=== PATIENT | female | born 1975 | race African-American/Black ===

== ENCOUNTER 2018-02-05 13:50 | Emergency (ER) | payer MEDICAID ==
[~2018-02-05] VITALS: Ht 175.3 cm; Wt 120.2 kg
[2018-02-05 14:22] VITALS: BP 197/120
[2018-02-05] MEDS ORDERED: HYDROcodone-ACET 7.5/325MG TAB PO ONE (15:15)
[2018-02-05] MEDS ORDERED: cloNIDine HCL 0.1 MG TAB PO ONE (15:15)
[2018-02-05] MEDS ORDERED: LIDOCAINE 1% HCL (LOCAL ANESTH.) INJ 20ML MDV ONE (15:23)
== END 2018-02-05 16:20 | disposition home or self-care (01) ==
LOC: ER 13:50
DX: S09.90XA Unspecified injury of head, initial encounter (principal); I10 Essential (primary) hypertension; W20.8XXA Other cause of strike by thrown, projected or falling object, initial encounter; Y93.89 Activity, other specified; Y99.8 Other external cause status; Y92.512 Supermarket, store or market as the place of occurrence of the external cause
CPT/HCPCS: 70450; 99284; J2001

== ENCOUNTER 2020-06-24 16:27 | Inpatient (IN) | payer MEDICAID, OTHER ==
[~2020-06-24] VITALS: Ht 175.3 cm; Wt 115.5 kg
[2020-06-24 19:05] LABS: Urine Bacteria FEW /hpf (None Seen); Urine Blood 3+ /uL (Negative); Urine Specific Gravity 1.005 (1.001-1.035); Urine WBC 50 /hpf (0 - 5)
[2020-06-24 19:22] LABS: Basophils # (auto) 0 10 ^3/uL (0-0.2); Basophils % (auto) 0.9 % (0.0-2.0); Eosinophils # (auto) 0.1 10 ^3/uL (0-0.8); Eosinophils % (auto) 2.6 % (0.0-7.0); Hematocrit 33.2 % (36.0-46.0); Lymphocytes # (auto) 1.6 10 ^3/uL (0.4-5.4); Lymphocytes % (auto) 38.1 % (10.0-50.0); Mean Corpuscular Hemoglobin 30.4 pg (28.0-32.0); Mean Corpuscular Hgb Conc. 33.1 g/dL (32.0-36.0); Mean Corpuscular Volume 91.7 fL (80.0-100.0); Monocytes # (auto) 0.3 10 ^3/uL (0-1.3); Monocytes % (auto) 7.4 % (0.0-12.0); Neutrophils # (auto) 2.2 10 ^3/uL (1.6-8.6); Platelet Count (auto) 236 10^3/uL (140-450); Red Blood Cells 3.62 10^6/uL (4.0-5.20); Red Cell Distribution Width 14.3 % (11.8-14.3); White Blood Cell 4.3 10^3/uL (4.4-10.8)
[2020-06-24 19:34] LABS: INR 1.2 (0.9-1.15); Partial Thromboplastin Time 29.2 sec (23.0-31.2)
[2020-06-24 19:37] LABS: Albumin 3.7 g/dL (3.4-5.0); Calcium 8.8 mg/dL (8.5-10.1); Potassium 3.3 mmol/L (3.5-5.1)
[2020-06-24 19:42] LABS: BUN/Creatinine Ratio 6.8; Bilirubin, Total 0.5 mg/dL (0.2-1.0); Total Protein 7.8 g/dL (6.4-8.2)
[2020-06-24] MEDS ORDERED: ENOXAPARIN SOD 100 MG/1 ML SYRINGE SC ONE (20:45)
[2020-06-24] MEDS ORDERED: cefTRIAXone 1GM/50ML D5W 50 ML IV ONE (20:45)
[2020-06-24] MEDS ORDERED: TOPI25CA5 PO (22:34)
[2020-06-24] MEDS ORDERED: CLO01T GT (22:34)
[2020-06-24] MEDS ORDERED: ASPI-543 PO (22:34)
[2020-06-24] MEDS ORDERED: LISI-646 PO (22:34)
[2020-06-24] MEDS ORDERED: ATOR10TA PO (22:34)
[2020-06-24] MEDS ORDERED: ONDANSETRON HCL 4 MG/2 ML VIAL IV PRN (22:45)
[2020-06-24] MEDS ORDERED: POTASSIUM CHL 20MEQ/100ML 100 ML IV ONE (22:45)
[2020-06-24] MEDS ORDERED: MORPHINE SULF INJ 2 MG/ML SYRINGE 1ML IV PRN (22:45)
[2020-06-24] MEDS: SODIUM CHLORIDE 0.9% 1,000 ML IV SCH (22:45)
[2020-06-24] MEDS ORDERED: NITROGLYCERIN 0.4 MG SL TAB SL PRN (22:45)
[2020-06-24] MEDS ORDERED: MORPHINE SULFATE 4 MG/ML SYR/VIAL IV PRN (22:45)
[2020-06-24] MEDS ORDERED: DOCUSATE SOD 100 MG CAP PO PRN (22:45)
--- NOTE | 2020-06-24 23:17 | NUR ---
ADMIT from ER to TELE Pt arrived alert and oriented x4. No complaints of pain, IV intact 22g Right Wrist. Oriented pt to unit. Instructed pt to use call light if need to ambulate or any needs. Side rails up, bed at lowest position.
[2020-06-24 23:20] VITALS: BP 151/94
[2020-06-25 00:32] LABS: Basophils # (auto) 0.1 10 ^3/uL (0-0.2); Basophils % (auto) 1.1 % (0.0-2.0); Eosinophils # (auto) 0.1 10 ^3/uL (0-0.8); Eosinophils % (auto) 2.4 % (0.0-7.0); Hematocrit 30.6 % (36.0-46.0); Hemoglobin 10.2 g/dL (12.2-16.2); Lymphocytes # (auto) 2.9 10 ^3/uL (0.4-5.4); Lymphocytes % (auto) 50.4 % (10.0-50.0); Mean Corpuscular Hemoglobin 30.8 pg (28.0-32.0); Mean Corpuscular Hgb Conc. 33.3 g/dL (32.0-36.0); Mean Corpuscular Volume 92.5 fL (80.0-100.0); Monocytes # (auto) 0.4 10 ^3/uL (0-1.3); Monocytes % (auto) 6.4 % (0.0-12.0); Neutrophils # (auto) 2.2 10 ^3/uL (1.6-8.6); Neutrophils % (auto) 39.7 % (37.0-80.0); Nucleated Red Blood Cells % 0.1 %; Platelet Count (auto) 219 10^3/uL (140-450); Red Blood Cells 3.31 10^6/uL (4.0-5.20); Red Cell Distribution Width 14.2 % (11.8-14.3); White Blood Cell 5.7 10^3/uL (4.4-10.8)
[2020-06-25 00:48] LABS: Albumin 3.3 g/dL (3.4-5.0); BUN/Creatinine Ratio 5.8; Potassium 3.3 mmol/L (3.5-5.1)
[2020-06-25 00:50] LABS: Bilirubin, Total 0.4 mg/dL (0.2-1.0); Total Protein 7.4 g/dL (6.4-8.2)
--- NOTE | 2020-06-25 01:52 | NUR ---
Lab Value Paged steam box hand hospitalist about pt potassium of 3.3, awaiting orders
--- NOTE | 2020-06-25 02:22 | NUR ---
New Order Notified by weight caller hospitalist new order for K rider 20meq/100ml IV once 50ml/hr. Read back and verified order.
[2020-06-25] MEDS ORDERED: POTASSIUM CHL 20MEQ/100ML 100 ML IV ONE (02:30)
[2020-06-25 05:00] VITALS: BP 153/99
--- NOTE | 2020-06-25 05:21 | NUR ---
Pt status Pt passed large blood clot from menstrual cycle . Pt vital signs 153/99 pulse 55 O2 sat 100% on room air. Pt verbalized no pain but slight abdominal pressure, stomach no sign of distention, soft and flat. No change from baseline noted.
--- NOTE | 2020-06-25 07:35 | NUR ---
Opening Shift Note: Assumed care of patient, awake and alert. No S/S of distress/SOB or pain. POM at bedside. Patient refused for medications to be taken to pharmacy, patient educated to not take any personal medications while admitted, patient verbally agreed. Bed in lowest locked position, side rails up x 2, call light within reach. Patient instructed on POC and to call for assist PRN, will continue to monitor for changes Q1hr and PRN.
[2020-06-25 09:03] VITALS: BP 179/95
[2020-06-25] MEDS: cefTRIAXone 1GM/50ML D5W 50 ML IV SCH (09:10)
[2020-06-25] MEDS: PANTOPRAZOLE 40 MG/10 ML VIAL INJ IV SCH (09:10)
[2020-06-25] MEDS: ENOXAPARIN SOD 40 MG/0.4 ML SYRINGE SC SCH (09:10)
[2020-06-25] MEDS: ASPirin 81 mg TAB PO SCH (09:11)
[2020-06-25 10:19] LABS: Basophils # (auto) 0 10 ^3/uL (0-0.2); Basophils % (auto) 0.7 % (0.0-2.0); Eosinophils # (auto) 0.2 10 ^3/uL (0-0.8); Eosinophils % (auto) 2.7 % (0.0-7.0); Hematocrit 33.1 % (36.0-46.0); Hemoglobin 10.7 g/dL (12.2-16.2); Lymphocytes # (auto) 2.2 10 ^3/uL (0.4-5.4); Lymphocytes % (auto) 35.9 % (10.0-50.0); Mean Corpuscular Hemoglobin 29.9 pg (28.0-32.0); Mean Corpuscular Hgb Conc. 32.4 g/dL (32.0-36.0); Mean Corpuscular Volume 92.2 fL (80.0-100.0); Monocytes # (auto) 0.2 10 ^3/uL (0-1.3); Monocytes % (auto) 3.9 % (0.0-12.0); Neutrophils # (auto) 3.4 10 ^3/uL (1.6-8.6); Neutrophils % (auto) 56.8 % (37.0-80.0); Nucleated Red Blood Cells % 0.1 %; Platelet Count (auto) 253 10^3/uL (140-450); Red Blood Cells 3.58 10^6/uL (4.0-5.20); Red Cell Distribution Width 14.3 % (11.8-14.3); White Blood Cell 6.1 10^3/uL (4.4-10.8)
--- NOTE | 2020-06-25 10:35 | NUR ---
PATIENT BP ELEVATED AT THIS TIME. 179/95 NO PRNs OR HOME MEDICATIONS AVAILABLE. MD CANNON PAGED AT THIS TIME.
[2020-06-25 10:42] LABS: Potassium 3.2 mmol/L (3.5-5.1)
[2020-06-25 10:49] LABS: Albumin 3.7 g/dL (3.4-5.0); BUN/Creatinine Ratio 7.1; Bilirubin, Total 0.5 mg/dL (0.2-1.0); Calcium 8.8 mg/dL (8.5-10.1); Total Protein 7.9 g/dL (6.4-8.2)
--- NOTE | 2020-06-25 10:49 | NUR ---
MD CANNON RETURNED CALL. NEW ORDERS RECEIVED, READ BACK AND VERIFIED.
--- NOTE | 2020-06-25 10:58 | NUR ---
Nutrition Consult Consider a speech therapy swallow eval and change diet consistency per speech therapy rec Est energy needs 8373-5081 kcal (14-18 kcal 105.2kg) Est protein needs 66-79g (1-1.2g/kg IBW 66kg) Will reassess prn. Addendum: 06/25/20 at [address] Amended: Links added.
[2020-06-25] MEDS ORDERED: LISINOPRIL 20 MG TAB PO ONE (11:00)
[2020-06-25] MEDS ORDERED: cloNIDine HCL 0.1 MG TAB PO ONE (11:00)
--- NOTE | 2020-06-25 12:26 | NUR ---
DR. MURPHY: DR. CANNON AT BEDSIDE. DISCUSSED POC WITH PATIENT. PATIENT VERBALLY AGREED. WILL CONTINUE TO MONITOR.
[2020-06-25] MEDS: cloNIDine HCL 0.1 MG TAB PO SCH ×2 (12:41→22:00)
[2020-06-25 13:00] VITALS: BP 124/80
--- NOTE | 2020-06-25 16:09 | NUR ---
PT REPORTS THAT SHE WALKS FINE AND DOES NOT NEED P.T. INTERVENTION.
[2020-06-25 17:10] VITALS: BP 114/74
[2020-06-25] MEDS: SODIUM CHLORIDE 0.9% 1,000 ML IV SCH (17:23)
[2020-06-25] MEDS: amLODIPine BESYLATE 5 MG TAB PO SCH (17:23)
[2020-06-25] MEDS: HYDROcodone-ACET 5/325MG TAB PO PRN (17:24)
--- NOTE | 2020-06-25 17:24 | NUR ---
PATIENT PROVIDED WITH SPECIMEN CUP FOR URINE SAMPLE.
--- NOTE | 2020-06-25 18:48 | NUR ---
CLOSING NOTE: PATIENT RESTING IN BED. NO S/S OF DISTRESS. CARE ENDORSED.
--- NOTE | 2020-06-25 19:00 | NUR ---
Opening Shift Note Assumed care of patient, awake and alert. No S/S of distress/SOB or pain. Insructed on POC and to callfor assist PRN, will continue to monitor for changes Q1hr and PRN.
--- NOTE | 2020-06-25 19:02 | NUR ---
DR. MURPHY: DR. Yuan AT BEDSIDE. DISCUSSED POC WITH PATIENT. PATIENT VERBALLY AGREED. WILL CONTINUE TO MONITOR.
[2020-06-25] MEDS: DOCUSATE ORAL LIQUID 100 MG/10 ML UD PO PRN (20:50)
[2020-06-25 22:00] VITALS: BP 106/72
[2020-06-25] MEDS: LISINOPRIL 20 MG TAB PO SCH (22:00)
[2020-06-25] MEDS ORDERED: TOPIRAMATE 25 MG TAB PO SCH (22:00)
[2020-06-25] MEDS: ATORVASTATIN 20 MG TAB PO SCH ×2 (22:00→22:19)
[2020-06-25] MEDS: TOPIRAMATE 25 MG TAB PO SCH ×2 (22:18→22:40)
[2020-06-26 05:07] VITALS: BP 133/84
[2020-06-26] MEDS: cloNIDine HCL 0.1 MG TAB PO SCH ×3 (06:00→21:41)
--- NOTE | 2020-06-26 06:00 | NUR ---
IV ATTEMPT Attempted IV start on right forearm using 20g needle. Unsuccessful. Pt tolerated well. Pressure dressing placed.
--- NOTE | 2020-06-26 07:30 | NUR ---
OPENING SHIFT NOTE Assumed care of patient from candy maker helper RN. Patient is alert and oriented x4, no signs of distress noted, patient denies pain. She was updated on the plan of care and verbalized understanding. Bed is locked, in the lowest position side rails up x2 and call light is in reach. Patient was encouraged to call for assistance as needed.
[2020-06-26] MEDS ORDERED: ADENOSINE 94 MG in GIVE UN-DILUTED 0 ML IV ONE (08:00)
[2020-06-26] MEDS: SODIUM CHLORIDE 0.9% 1,000 ML IV SCH (08:05)
--- NOTE | 2020-06-26 08:54 | NUR ---
PATIENT TAKEN TO STRESS LAB Accompanied by tech, no signs of distress noted on departure.
--- NOTE | 2020-06-26 10:00 | NUR ---
PT WENT DOWN FOR TEST. ATTEMPT P.T. LATER
[2020-06-26 10:01] VITALS: BP 169/98
--- NOTE | 2020-06-26 10:46 | NUR ---
PATIENT BACK FROM STRESS LAB no signs of distress noted. Will give morning medications as ordered.
[2020-06-26] MEDS: cefTRIAXone 1GM/50ML D5W 50 ML IV SCH (11:38)
[2020-06-26] MEDS: amLODIPine BESYLATE 5 MG TAB PO SCH (11:39)
[2020-06-26] MEDS: TOPIRAMATE 25 MG TAB PO SCH ×2 (11:39→21:41)
[2020-06-26] MEDS: LISINOPRIL 20 MG TAB PO SCH ×2 (11:40→21:42)
[2020-06-26] MEDS: ASPirin 81 mg TAB PO SCH (11:41)
[2020-06-26] MEDS: ENOXAPARIN SOD 40 MG/0.4 ML SYRINGE SC SCH (11:41)
[2020-06-26] MEDS: PANTOPRAZOLE 40 MG/10 ML VIAL INJ IV SCH (11:41)
--- NOTE | 2020-06-26 12:13 | NUR ---
PATIENT TAKEN TO MRI accompanied by jeevan, no signs of distress noted.
--- NOTE | 2020-06-26 12:40 | NUR ---
PATIENT BACK FROM MRI no signs of distress noted.
[2020-06-26 13:00] VITALS: BP 147/98
--- NOTE | 2020-06-26 13:40 | NUR ---
KASSANDRA AT BEDSIDE updated on the patient status. plan of care was discussed with the patient and she verbalized understanding. New orders received for Midline placement and to hold potassium until labs are resulted.
--- NOTE | 2020-06-26 13:50 | NUR ---
PAGED PICC LINE RN Cierra RN responded, stated she is covering for PICC RN today and is also covering in ER. Per RN she will try to do the midline today if not it will be done tomorrow.
[2020-06-26] MEDS: POTASSIUM EFFERVESENT TAB 25 MEQ PO ONE ×2 (13:55→16:39)
[2020-06-26 14:27] LABS: Basophils # (auto) 0.1 10 ^3/uL (0-0.2); Eosinophils # (auto) 0.2 10 ^3/uL (0-0.8); Eosinophils % (auto) 2.9 % (0.0-7.0); Hematocrit 32.6 % (36.0-46.0); Hemoglobin 10.7 g/dL (12.2-16.2); Lymphocytes # (auto) 2.3 10 ^3/uL (0.4-5.4); Lymphocytes % (auto) 39.6 % (10.0-50.0); Mean Corpuscular Hemoglobin 30.5 pg (28.0-32.0); Mean Corpuscular Hgb Conc. 32.7 g/dL (32.0-36.0); Mean Corpuscular Volume 93.1 fL (80.0-100.0); Monocytes # (auto) 0.4 10 ^3/uL (0-1.3); Monocytes % (auto) 7.6 % (0.0-12.0); Neutrophils # (auto) 2.8 10 ^3/uL (1.6-8.6); Neutrophils % (auto) 48.9 % (37.0-80.0); Nucleated Red Blood Cells % 0.3 %; Platelet Count (auto) 256 10^3/uL (140-450); Red Blood Cells 3.51 10^6/uL (4.0-5.20); Red Cell Distribution Width 14.4 % (11.8-14.3); White Blood Cell 5.8 10^3/uL (4.4-10.8)
[2020-06-26] MEDS: DOCUSATE ORAL LIQUID 100 MG/10 ML UD PO PRN (14:30)
[2020-06-26 14:31] LABS: Potassium 3.4 mmol/L (3.5-5.1)
[2020-06-26 14:36] LABS: BUN/Creatinine Ratio 4.2; Calcium 9.3 mg/dL (8.5-10.1)
[2020-06-26 17:00] VITALS: BP 118/67
--- NOTE | 2020-06-26 17:30 | NUR ---
KALEN AT BEDSIDE Updated the patient on the plan of care and she verbalized understanding. New orders for GI consult with the gastro group and cancel GEOVANNY for tomorrow.
--- NOTE | 2020-06-26 19:00 | NUR ---
Opening Shift Note Assumed care of patient, awake and alert X4. No S/S of distress/SOB or pain. Bed in low locked position, call light within reach, non skid socks on. Fall precaution educated. Patient verbalized understanding. Instructed on POC and to call for assist PRN, will continue to monitor for changes Q1hr and PRN.
--- NOTE | 2020-06-26 21:40 | NUR ---
PATIENT REFUSED SCHEDULED LIPITOR 20 MG. PATIENT STATED SHE ONLY TAKES 5 MG AT NIGHT. WILL ENDORSE IN THE MORNING TO AM NURSE.
[2020-06-26] MEDS: ATORVASTATIN 20 MG TAB PO SCH (21:41)
[2020-06-26 22:27] VITALS: BP 106/70
[2020-06-27] MEDS: SODIUM CHLORIDE 0.9% 1,000 ML IV SCH ×2 (01:14→17:25)
[2020-06-27 05:48] VITALS: BP 103/59
[2020-06-27] MEDS: cloNIDine HCL 0.1 MG TAB PO SCH ×3 (05:51→23:11)
--- NOTE | 2020-06-27 05:52 | NUR ---
Patient refused to take her Catapres scheduled this morning. Patient said that her blood pressure is low and it seems that she's going to "pass out" last night. Patient stated that she just remembered that her PCP allowed her to cut her home medications into half since she had lost a lot of weight after her stroke last february 2020. But her PCP wasn't able to change the dosage from the pharmacy. Patient said that she will clarify this with rounding doctors today. Will endorse to AM nurse.
--- NOTE | 2020-06-27 06:55 | NUR ---
Closing Shift Event Patient asleep. Bed in low locked position, call light within reach, No complains.
--- NOTE | 2020-06-27 07:55 | NUR ---
RECEIVED PATIENT ALERT AND ORIENTED X4, NOT IN DISTRESS, CLEAR LS IN BILATERAL LUNG LOBES, RR=18 SAT=97%, DENIED CHEST PAIN AND SOB, SR R=84 ON TELE MONITOR, ABDOMEN SOFT AND ROUND WITH ACTIVE BS, LAST BM=06/21/20 REPORTED, DENIED CONSTIPATION, ON MINISTERIAL CYCLE REPORTED, UNDER ZIMMERMAN AND PADS PROVIDED REQUESTED, AMBULATED TO BR AND BACK TO BED, TOLERATED WELL, SKIN INTACT, KEEP CLEAN AND DRY, RESTING ON BED, HEAD OF BED ELEVATED, BED ON LOW POSITION, RAILS UP X2, CALL LIGHTS ON REACH, POTASSIUM L=3.4 ON 06/26/20 POTASSIUM PO X1 WAS GIVEN REPORTED BY THE TIEDOWN OPERATOR RN, PENDING GI AND MID LINE ACCESS PLACEMENT ORDERED, WILL CONTINUE MONITORING.
[2020-06-27 09:11] VITALS: BP 116/72
[2020-06-27] MEDS ORDERED: EZ PAQUE SUSP 12OZ BTL ONE ×2 (09:42→10:09)
--- NOTE | 2020-06-27 10:00 | NUR ---
SITTING ON BED AND DANGLING, PENDING PICC LINE INSERTION, PICC LINE NURSE WAS PAGED FOR FOLLOW UP, WAITING FOR CALL BACK, WILL CONTINUE MONITORING.
[2020-06-27] MEDS ORDERED: EZ-GAS II GRANULES (RADIOLOGY USE) PO ONE (10:09)
[2020-06-27] MEDS: amLODIPine BESYLATE 5 MG TAB PO SCH (10:53)
[2020-06-27] MEDS: cefTRIAXone 1GM/50ML D5W 50 ML IV SCH (10:53)
[2020-06-27] MEDS: TOPIRAMATE 25 MG TAB PO SCH ×2 (10:54→23:11)
[2020-06-27] MEDS: LISINOPRIL 20 MG TAB PO SCH ×2 (10:55→23:12)
[2020-06-27] MEDS: ENOXAPARIN SOD 40 MG/0.4 ML SYRINGE SC SCH (10:55)
[2020-06-27] MEDS: PANTOPRAZOLE 40 MG/10 ML VIAL INJ IV SCH (10:55)
[2020-06-27] MEDS: ASPirin 81 mg TAB PO SCH (10:55)
[2020-06-27] MEDS ORDERED: POTASSIUM EFFERVESENT TAB 25 MEQ PO ONE (11:15)
--- NOTE | 2020-06-27 12:31 | NUR ---
PICC LINE WAS PAGED FOR MIDLINE INSERTION FOLLOW UP, WAITING FOR CALL BACK, WILL CONTINUE MONITORING.
--- NOTE | 2020-06-27 15:00 | NUR ---
RT. HAND IV SITE INFILTRATE AND D/C, UNABLE TO CONTACT PICC LINE NURSE, BUS TRANSPORTATION MANAGER WAS CONTACTED FOR PICC LINE NURSE FOLLOW UP, WAITING PICC LINE NURSE TI INSERT MID LINE ACCESS, RESTING ON BED, NOT IN DISTRESS, DENIED PAIN, WILL CONTINUE MONITORING.
[2020-06-27 15:20] LABS: Basophils # (auto) 0 10 ^3/uL (0-0.2); Basophils % (auto) 0.8 % (0.0-2.0); Eosinophils # (auto) 0.1 10 ^3/uL (0-0.8); Eosinophils % (auto) 2.3 % (0.0-7.0); Hematocrit 28.9 % (36.0-46.0); Hemoglobin 9.7 g/dL (12.2-16.2); Lymphocytes # (auto) 2.3 10 ^3/uL (0.4-5.4); Lymphocytes % (auto) 45.2 % (10.0-50.0); Mean Corpuscular Hemoglobin 31.3 pg (28.0-32.0); Mean Corpuscular Hgb Conc. 33.7 g/dL (32.0-36.0); Mean Corpuscular Volume 92.8 fL (80.0-100.0); Monocytes # (auto) 0.4 10 ^3/uL (0-1.3); Monocytes % (auto) 6.8 % (0.0-12.0); Neutrophils # (auto) 2.3 10 ^3/uL (1.6-8.6); Neutrophils % (auto) 44.9 % (37.0-80.0); Nucleated Red Blood Cells % 0.1 %; Platelet Count (auto) 231 10^3/uL (140-450); Red Blood Cells 3.11 10^6/uL (4.0-5.20); Red Cell Distribution Width 14.4 % (11.8-14.3); White Blood Cell 5.2 10^3/uL (4.4-10.8)
[2020-06-27 15:34] LABS: Calcium 8.9 mg/dL (8.5-10.1); Potassium 3.7 mmol/L (3.5-5.1)
[2020-06-27 15:41] LABS: BUN/Creatinine Ratio 4.5
[2020-06-27 16:07] VITALS: BP 139/76
--- NOTE | 2020-06-27 16:10 | NUR ---
Midline Placement: Patient educated on need for midline placement. All risks and benefits explained and all questions and concerns addresses prior to procedure. 18g/10cm midline inserted via RIGHT BRACHIAL vein using Ultrasound. Sterile technique utilized. Blood return obtained from THE SINGLE lumen and flushed easily with NS using proper technique. Midline secured with saline lock; biodisc and occlusive dressing applied. Primary RN NATE notified. Midline lot # [id number]
[2020-06-27 16:48] VITALS: BP 136/74
--- NOTE | 2020-06-27 16:48 | NUR ---
PT REPORTS THAT SHE HAS BEEN WALKING FINE IN THE ROOM AND DOES NOT NEED P.T. INTERVENTION.
--- NOTE | 2020-06-27 19:19 | NUR ---
RESTING ON BED, NOT IN DISTRESS, HEAD OF BED ELEVATED, BED ON LOW POSITION, RAILS UP X2, CALL LIGHTS ON REACH, REPORT WAS GIVEN TO THE CADDY MASTER RN.
--- NOTE | 2020-06-27 19:32 | NUR ---
Pt hit Big toe on IV pole minute bleeding and broken toenail noted, patient stated that toe next to big toe is darker but did not note any discoloration upon assessment. Took picture of toes, wound consult in place, and placed non-adherent pad between great toe and second toe and wrapped with Kerlix gauze.
--- NOTE | 2020-06-27 20:10 | NUR ---
Opening Shift Note Assumed care of patient, awake and alert x 4. No S/S of distress/SOB or pain. Tele box matches pt all leads are in place . Bed in lowest position and locked side rails up x 2. Call light and bedside table are within reach. Instructed on POC and to call for assist PRN, will continue to monitor for changes Q1hr and PRN.
[2020-06-27 22:00] VITALS: BP 158/92
--- NOTE | 2020-06-27 22:30 | NUR ---
AMADOU Brennan returned paged telephone order to cancel atorvastatin 20mg PO HS. Start atorvastatin 10 mg PO HS. Advised AMADOU Brennan that pt HR 59, SBP 158/92 AMADOU Brennan stated to give pt's clonidine 0.2 mg PO and lisinopril 20 mg PO.
[2020-06-27] MEDS: ACETAMINOPHEN 325 MG TAB PO PRN (23:22)
[2020-06-28 05:00] VITALS: BP 100/62
--- NOTE | 2020-06-28 05:28 | NUR ---
Holding clonidine 0.2 mg PO due to heart rate 49, SBP 100/62 Addendum: 06/28/20 at 0621 by DEVI PREDOMO RN RN Holding clonidine 0.2 mg PO due to heart rate 49, SBP 100/62. Jewell Brennan
[2020-06-28] MEDS: cloNIDine HCL 0.1 MG TAB PO SCH ×3 (05:33→21:32)
[2020-06-28] MEDS: SODIUM CHLORIDE 0.9% 1,000 ML IV SCH (05:51)
--- NOTE | 2020-06-28 06:19 | NUR ---
Hospitalist returned page hold clonidine 0.2 mg PO
--- NOTE | 2020-06-28 07:30 | NUR ---
RECEIVED PATIENT ALERT AND ORIENTED X4, NOT IN DISTRESS, CLEAR LS IN BILATERAL LUNG LOBES, RR=18, DEEP BREATHING AND COUGHING ENCOURAGED, VERBALIZED UNDERSTANDING, DENIED CHEST PAIN AND SOB, SB R=58 ON TELE MONITOR, ABDOMEN SOFT AND ROUND WITH ACTIVE BS, PASSING GAS NO BM TODAY REPORTED, SKIN INTACT AND WARM TO TOUCH, KEEP CLEAN AND DRY, DENIED PAIN, RESTING ON BED, HEAD OF BED ELEVATED, BED ON LOW POSITION, RAILS UP X2, CALL LIGHTS ON REACH, WILL CONTINUE MONITORING.
[2020-06-28 09:00] VITALS: BP 104/64
--- NOTE | 2020-06-28 09:15 | NUR ---
COMMUNICATIONS TOWER CLIMBER CONTACTED FOR PENDING GEOVANNY TODAY, COMMUNICATIONS TOWER CLIMBER WILL CALL BACK AT 11:00 FOR SCHEDULE TIME REPORT, WILL GIVE AM PO MEDS AND KEEP NPO ORDERED, WILL CONTINUE MONITORING.
[2020-06-28] MEDS: cefTRIAXone 1GM/50ML D5W 50 ML IV SCH (10:06)
[2020-06-28] MEDS: PANTOPRAZOLE 40 MG/10 ML VIAL INJ IV SCH (10:06)
[2020-06-28] MEDS: ASPirin 81 mg TAB PO SCH (10:07)
[2020-06-28] MEDS: TOPIRAMATE 25 MG TAB PO SCH ×2 (10:09→21:32)
[2020-06-28] MEDS: amLODIPine BESYLATE 5 MG TAB PO SCH (10:09)
[2020-06-28] MEDS: ENOXAPARIN SOD 40 MG/0.4 ML SYRINGE SC SCH (10:10)
[2020-06-28] MEDS: LISINOPRIL 20 MG TAB PO SCH ×2 (10:10→21:33)
[2020-06-28 10:15] LABS: Basophils # (auto) 0 10 ^3/uL (0-0.2); Basophils % (auto) 1.1 % (0.0-2.0); Hemoglobin 8.3 g/dL (12.2-16.2); Lymphocytes # (auto) 2.2 10 ^3/uL (0.4-5.4); Mean Corpuscular Hemoglobin 31.3 pg (28.0-32.0); Monocytes # (auto) 0.3 10 ^3/uL (0-1.3); Neutrophils # (auto) 1.8 10 ^3/uL (1.6-8.6); Nucleated Red Blood Cells % 0.2 %; Red Blood Cells 2.65 10^6/uL (4.0-5.20)
[2020-06-28 10:18] LABS: Eosinophils # (auto) 0.2 10 ^3/uL (0-0.8); Eosinophils % (auto) 3.7 % (0.0-7.0); Lymphocytes % (auto) 48.5 % (10.0-50.0); Mean Corpuscular Hgb Conc. 33.2 g/dL (32.0-36.0); Mean Corpuscular Volume 94.2 fL (80.0-100.0); Monocytes % (auto) 7.7 % (0.0-12.0); Platelet Count (auto) 172 10^3/uL (140-450); Red Cell Distribution Width 14.8 % (11.8-14.3); White Blood Cell 4.5 10^3/uL (4.4-10.8)
[2020-06-28 10:25] LABS: Calcium 8.4 mg/dL (8.5-10.1); Potassium 3.9 mmol/L (3.5-5.1)
[2020-06-28 10:33] LABS: BUN/Creatinine Ratio 6.9
--- NOTE | 2020-06-28 12:00 | NUR ---
WOUND CARE NOTE: IN TO SEE PATIENT AT THIS TIME PER WOUND CARE CONSULTATION REQUEST. PATIENT RECEIVED A LIFTED NAIL FROM NAILBED TO THE LEFT HALLUX, AFTER KICKING HER IV POLE, RESULTING IN THE TRAUMA. THERE IS NO OPEN WOUND . NAIL LIFTED PARTIALLY FROM THE BED, AND WAS BLEEDED AT THE TIME OF ACCIDENT, BUT CURRENTLY NO BLEEDING OR DRAINAGE NOTED. APPLIED BANDAID OVER NAIL TO PROTECT, CUSHION NAIL. WOUND PHOTO WAS TAKEN AT TIME OF TRAUMA FOR REFERENCE BY BEDSIDE NURSE. RECOMMEND: EOD/PRN DRESSING CHANGE WITH BANDAID. NO FURTHER WOUND CARE NEEDED. Addendum: 06/28/20 at 1742 by Codi Mckoy RN Amended: Links added.
[2020-06-28 12:31] VITALS: BP 132/74
--- NOTE | 2020-06-28 14:29 | NUR ---
Nutrition Followup Notes Pt wt is 114.2 kg Pt was awake when rounded this morning. Pt is with a Cardiac 2gNa diet, appetite is good aeb ave 81% PO intake per RN doc. Pt stated her food preferences, relayed to warrant clerk. Est energy needs 4282-1197 kcal (14-18 kcal 105.2kg) Est protein needs 66-79g (1-1.2g/kg IBW 66kg) Will reassess prn. LABS: CL 109 H, BUN 3 L GI: Pt with no BM reported today per RN doc BS: 18 mod risk. Refer to wound assessment report for full details. PES: Obesity r/t caloric intake in excess of needs aeb pt with a BMI of 34.2kg/m2 Comments Will continue to monitor PO status, skin status, pertinent labs and weight trends. Will f/u in 3-5 days. 1) Continue to monitor po intake, labs, skin 2) Refer pt to [facility] on DC 3) Continue current plan of care
[2020-06-28 16:58] VITALS: BP 122/79
--- NOTE | 2020-06-28 19:12 | NUR ---
RESTING ON BED, NOT IN DISTRESS, HEAD OF BED ELEVATED, BED ON LOW POSITION, RAILS UP X2, CALL LIGHTS ON REACH, REPORT WAS GIVEN TO THE HHA RN.
--- NOTE | 2020-06-28 19:15 | NUR ---
Opening Shift Note Assumed care of patient, awake and alert. No S/S of distress/SOB or pain. Bed locked in lowest position, side rails up X2, call light within reach. Instructed on POC and to call for assist PRN, will continue to monitor for changes Q1hr and PRN.
--- NOTE | 2020-06-28 20:58 | NUR ---
DR GONSALEZ AT BEDSIDE.
--- NOTE | 2020-06-28 21:00 | NUR ---
CANCEL GEOVANNY FOR TOMORROW PER DR GONSALEZ.
[2020-06-28 22:00] VITALS: BP 114/84
[2020-06-28] MEDS ORDERED: ATORVASTATIN 20 MG TAB PO SCH (22:00)
[2020-06-29] MEDS: SODIUM CHLORIDE 0.9% 1,000 ML IV SCH ×2 (01:46→18:23)
[2020-06-29 05:00] VITALS: BP 140/72
[2020-06-29] MEDS: cloNIDine HCL 0.1 MG TAB PO SCH ×3 (05:31→21:26)
--- NOTE | 2020-06-29 07:05 | NUR ---
CARE ENDORSED TO DAY SHIFT RN. PATIENT RESTING IN BED, NO SIGNS OF DISTRESS OR SOB. SIDE RAILS UP X2, BED LOCKED IN LOWEST POSITION, CALL LIGHT WITHIN REACH.
[2020-06-29 08:00] VITALS: BP 103/63
[2020-06-29] MEDS ORDERED: LACTULOSE 20Gm/30ML SOLN PO ONE (08:45)
[2020-06-29] MEDS: PANTOPRAZOLE 40 MG/10 ML VIAL INJ IV SCH (10:00)
[2020-06-29] MEDS: cefTRIAXone 1GM/50ML D5W 50 ML IV SCH (10:01)
[2020-06-29] MEDS: TOPIRAMATE 25 MG TAB PO SCH ×2 (10:01→21:25)
[2020-06-29] MEDS: amLODIPine BESYLATE 5 MG TAB PO SCH (10:01)
[2020-06-29] MEDS: ASPirin 81 mg TAB PO SCH (10:01)
[2020-06-29] MEDS: ENOXAPARIN SOD 40 MG/0.4 ML SYRINGE SC SCH (10:02)
[2020-06-29] MEDS: LISINOPRIL 20 MG TAB PO SCH ×2 (10:02→11:00)
--- NOTE | 2020-06-29 11:22 | NUR ---
MED HELD LISINOPRIL 40 MG HELD DUE TO BP 97/64
[2020-06-29 13:00] VITALS: BP 105/59
--- NOTE | 2020-06-29 14:47 | NUR ---
assessment Patient is a 45 year old female who is alert and oriented. Patients cognitive abilities are intact. Prior to admission patient lived home with family and functioned independently. Patient informed me she is able to care for her own ADLs. Per patient she will return home to her prior living arrangements post discharge and family will transport her home. Patient has no need for DME. Patients PCP is Dr Kaur. Patient has no safety issues regarding returning home. Patient has no post discharge needs identified as of now. I will continue to monitor and follow up as appropriate for any post discharge needs. I informed patient she has a right to speak to a social problems specialist regarding all care. I informed patient she has a right to participate in any and all discharge planning. Patient does not have a POA and advanced directive. I have offered patient information on POA and advanced directives. I informed the patient the advantages and benefits of having an Advanced Directive. Patient verbalized understanding and agreed to discharge plan. Addendum: 06/29/20 at 1449 by Michaela GONZALEZ Amended: Links added.
[2020-06-29 16:48] VITALS: BP 112/63
[2020-06-29] MEDS: ACETAMINOPHEN 325 MG TAB PO PRN (18:41)
--- NOTE | 2020-06-29 19:05 | NUR ---
Opening Shift Note Assumed care of patient, awake and alert. Bed locked in lowest position, side rails up X2, call light within reach. Patient on room air no S/S of distress/SOB or pain. Instructed on POC and to call for assist PRN, will continue to monitor for changes Q1hr and PRN.
[2020-06-29] MEDS: ATORVASTATIN 20 MG TAB PO SCH (21:26)
[2020-06-29 22:00] VITALS: BP 140/82
[2020-06-30 05:00] VITALS: BP 115/63
[2020-06-30] MEDS: cloNIDine HCL 0.1 MG TAB PO SCH ×3 (05:05→20:34)
[2020-06-30 09:00] VITALS: BP 119/78
[2020-06-30] MEDS: ASPirin 81 mg TAB PO SCH (09:20)
[2020-06-30] MEDS: cefTRIAXone 1GM/50ML D5W 50 ML IV SCH (09:20)
[2020-06-30] MEDS: SODIUM CHLORIDE 0.9% 1,000 ML IV SCH (09:21)
[2020-06-30] MEDS: amLODIPine BESYLATE 5 MG TAB PO SCH (09:21)
[2020-06-30] MEDS: ENOXAPARIN SOD 40 MG/0.4 ML SYRINGE SC SCH (09:21)
[2020-06-30] MEDS: PANTOPRAZOLE 40 MG/10 ML VIAL INJ IV SCH (09:21)
[2020-06-30] MEDS: TOPIRAMATE 25 MG TAB PO SCH ×2 (09:21→20:33)
[2020-06-30] MEDS: LISINOPRIL 20 MG TAB PO SCH (09:22)
[2020-06-30 13:00] VITALS: BP 127/81
--- NOTE | 2020-06-30 13:00 | NUR ---
CHANGED DRESSING WITH STERILE TECHNIQUE TO RIGHT UPPER ARM MIDLINE. PATIENT WAS COMPLAINING TO PRIMARY RN PATRICK THAT HER MIDLINE WAS LEAKING. UPON ASSESSMENT, THE MIDLINE WAS LEAKING FROM THE PIGTAIL HUB AND JUST NEEDED TO BE TIGHTENED. PATIENT TOLERATED WELL AND PRIMARY RN NOTIFIED.
[2020-06-30] MEDS ORDERED: LACTULOSE 20Gm/30ML SOLN PO ONE (13:45)
[2020-06-30] MEDS ORDERED: FLEET ENEMA(ADULT) 135 ML PR ONE (14:00)
--- NOTE | 2020-06-30 16:00 | NUR ---
Report Received report from SABINO Harris.
--- NOTE | 2020-06-30 16:10 | NUR ---
Patient Rounds Patient currently sitting on edge of bed, no signs of distress at this time. Respirations even and unlabored. Will continue to monitor q1hr and PRN.
[2020-06-30 16:56] VITALS: BP 125/87
--- NOTE | 2020-06-30 17:52 | NUR ---
at Station Dr. Yuan at station, new orders received.
--- NOTE | 2020-06-30 19:15 | NUR ---
Closing Shift Note Report given to NOC RN, Abner. Patient has no signs of distress at this time. Respirations even and unlabored.
[2020-06-30 20:00] VITALS: BP 115/78
[2020-06-30] MEDS: ATORVASTATIN 20 MG TAB PO SCH (20:34)
[2020-06-30 22:00] VITALS: BP 132/77
--- NOTE | 2020-06-30 22:22 | NUR ---
BOWEL MOVEMENT PATIENT HAD A BOWEL MOVEMENT
[2020-07-01 05:00] VITALS: BP 111/74
[2020-07-01] MEDS: SODIUM CHLORIDE 0.9% 1,000 ML IV SCH ×2 (05:06→21:25)
[2020-07-01] MEDS: cloNIDine HCL 0.1 MG TAB PO SCH ×3 (05:07→21:57)
--- NOTE | 2020-07-01 07:10 | NUR ---
CARE ENDORSED TO DENNIS GALLO. NO SIGNS OF SOB/ DISTRESS. BED LOCKED IN LOWEST POSITION, SIDE RAILS UP, CALL LIGHT WITHIN REACH.
[2020-07-01 08:39] VITALS: BP 103/57
[2020-07-01] MEDS: amLODIPine BESYLATE 5 MG TAB PO SCH (10:00)
[2020-07-01] MEDS: LISINOPRIL 20 MG TAB PO SCH (10:00)
[2020-07-01] MEDS: ASPirin 81 mg TAB PO SCH (10:02)
[2020-07-01] MEDS: cefTRIAXone 1GM/50ML D5W 50 ML IV SCH (10:02)
[2020-07-01] MEDS: PANTOPRAZOLE 40 MG/10 ML VIAL INJ IV SCH (10:02)
[2020-07-01] MEDS: ENOXAPARIN SOD 40 MG/0.4 ML SYRINGE SC SCH (10:03)
[2020-07-01] MEDS: TOPIRAMATE 25 MG TAB PO SCH ×2 (10:03→21:56)
--- NOTE | 2020-07-01 10:25 | NUR ---
Nutrition Followup Notes Pt wt is 107.2 kg Pt was awake when rounded this morning and in the rest room. Pt is with a Cardiac 2gNa diet, appetite is good aeb ave 82% PO intake x2 days per RN doc. Per MD note pt with possible dysphagia, barium esophagogram negative per MD note. Est energy needs 6185-6962 kcal (14-18 kcal 105.2kg) Est protein needs 66-79g (1-1.2g/kg IBW 66kg) Will reassess prn. LABS: BUN 4L, Ca 8.4L, Alb 3.7WNL GI: Pt with 2 BMs 07/01 reported per RN doc BS: 18 mod risk. Refer to wound assessment report for full details. PES: Obesity r/t caloric intake in excess of needs aeb pt with a BMI of 34.2kg/m2 Comments Will continue to monitor PO status, skin status, pertinent labs and weight trends. Will f/u in 3-5 days. 1) Continue to monitor po intake, labs, skin 2) Refer pt to [facility] on DC 3) Continue current plan of care
[2020-07-01 12:56] VITALS: BP 119/66
[2020-07-01 16:48] VITALS: BP 124/83
--- NOTE | 2020-07-01 19:00 | NUR ---
Opening Shift Note Assumed care of patient, awake and alert. No S/S of distress/SOB or pain. Instructed on POC and to call for assist PRN, will continue to monitor for changes Q1hr and PRN.
[2020-07-01] MEDS: HYDROcodone-ACET 5/325MG TAB PO PRN (20:03)
[2020-07-01] MEDS: ATORVASTATIN 20 MG TAB PO SCH (21:57)
[2020-07-01 22:00] VITALS: BP 124/77
[2020-07-02 05:00] VITALS: BP 132/81
[2020-07-02] MEDS: cloNIDine HCL 0.1 MG TAB PO SCH ×3 (05:45→21:41)
[2020-07-02] MEDS: cefTRIAXone 1GM/50ML D5W 50 ML IV SCH (09:10)
[2020-07-02] MEDS: PANTOPRAZOLE 40 MG/10 ML VIAL INJ IV SCH (09:10)
[2020-07-02] MEDS: ENOXAPARIN SOD 40 MG/0.4 ML SYRINGE SC SCH (09:11)
[2020-07-02] MEDS: TOPIRAMATE 25 MG TAB PO SCH ×2 (09:11→21:42)
[2020-07-02] MEDS: ASPirin 81 mg TAB PO SCH (09:12)
[2020-07-02] MEDS: amLODIPine BESYLATE 5 MG TAB PO SCH (09:13)
[2020-07-02 09:46] VITALS: BP 124/76
[2020-07-02] MEDS: LISINOPRIL 20 MG TAB PO SCH (10:30)
[2020-07-02 12:55] VITALS: BP 118/75
[2020-07-02] MEDS: SODIUM CHLORIDE 0.9% 1,000 ML IV SCH (14:47)
[2020-07-02 16:32] VITALS: BP 117/75
--- NOTE | 2020-07-02 18:18 | NUR ---
DOCTOR KASSANDRA MURPHY MD INFORMED PATIENTS 1000 LISINOPRIL AND 1400 CLONIDINE WERE HELD.
--- NOTE | 2020-07-02 19:15 | NUR ---
Opening Shift Note Assumed care of patient from day shift RN, patient awake alert and oriented x4. No S/S of distress/SOB or pain. Instructed on POC and to call for assist PRN, safety measures in place call light with in reach, bed in lowest position. and side rails up x2.will continue to monitor for changes Q1hr and PRN.
[2020-07-02] MEDS: ATORVASTATIN 20 MG TAB PO SCH (21:42)
[2020-07-02 22:00] VITALS: BP 117/69
[2020-07-03 05:00] VITALS: BP 131/74
[2020-07-03] MEDS: cloNIDine HCL 0.1 MG TAB PO SCH ×2 (05:32→14:00)
[2020-07-03 06:18] LABS: Basophils # (auto) 0 10 ^3/uL (0-0.2); Basophils % (auto) 0.7 % (0.0-2.0); Eosinophils # (auto) 0.1 10 ^3/uL (0-0.8); Hemoglobin 7.3 g/dL (12.2-16.2); Lymphocytes # (auto) 1.7 10 ^3/uL (0.4-5.4); Monocytes # (auto) 0.3 10 ^3/uL (0-1.3); Neutrophils # (auto) 1.9 10 ^3/uL (1.6-8.6); Nucleated Red Blood Cells % 0.1 %
[2020-07-03 06:22] LABS: Eosinophils % (auto) 2.7 % (0.0-7.0); Hematocrit 21.9 % (36.0-46.0); Mean Corpuscular Hgb Conc. 33.5 g/dL (32.0-36.0); Mean Corpuscular Volume 92.4 fL (80.0-100.0); Monocytes % (auto) 8.1 % (0.0-12.0); Neutrophils % (auto) 46.5 % (37.0-80.0); Platelet Count (auto) 197 10^3/uL (140-450); Red Blood Cells 2.37 10^6/uL (4.0-5.20); Red Cell Distribution Width 14.1 % (11.8-14.3)
[2020-07-03] MEDS: SODIUM CHLORIDE 0.9% 1,000 ML IV SCH (06:33)
[2020-07-03 06:43] LABS: Potassium 3.6 mmol/L (3.5-5.1)
[2020-07-03 06:57] LABS: BUN/Creatinine Ratio 9.8; Calcium 8.4 mg/dL (8.5-10.1)
--- NOTE | 2020-07-03 07:32 | NUR ---
Endorsed care to day shift RN Marcin, safety measures in place call light with in reach bed in lowest position siderails up x2.
[2020-07-03 08:30] VITALS: BP 92/53
[2020-07-03 09:00] VITALS: BP 92/53
[2020-07-03] MEDS: cefTRIAXone 1GM/50ML D5W 50 ML IV SCH (09:02)
[2020-07-03] MEDS: ASPirin 81 mg TAB PO SCH (09:03)
[2020-07-03] MEDS: PANTOPRAZOLE 40 MG/10 ML VIAL INJ IV SCH (09:03)
[2020-07-03] MEDS: ENOXAPARIN SOD 40 MG/0.4 ML SYRINGE SC SCH (09:04)
[2020-07-03] MEDS: TOPIRAMATE 25 MG TAB PO SCH (09:04)
[2020-07-03] MEDS: amLODIPine BESYLATE 5 MG TAB PO SCH (09:05)
[2020-07-03] MEDS: LISINOPRIL 20 MG TAB PO SCH (09:05)
--- NOTE | 2020-07-03 09:05 | NUR ---
Scheduled medications given per order. Patient resting comfortably in bed with no complaint of pain. Patient stable.
--- NOTE | 2020-07-03 10:50 | NUR ---
Patient sitting on side of bed with Dr. Govea at bedside. Patient stable.
[2020-07-03 11:20] VITALS: BP 94/53
--- NOTE | 2020-07-03 12:20 | NUR ---
Patient sitting on side of bed, eating lunch. Denies any pain at this time.. Patient stable.
[2020-07-03 13:00] VITALS: BP 109/73
--- NOTE | 2020-07-03 14:05 | NUR ---
Patient refuse anti-hypertensive medication: 109/73. Patient sitting on side of bed with no complaint of pain. Patient stable.
--- NOTE | 2020-07-03 14:20 | NUR ---
Discharge instructions Both written and verbal discharge instructions given as ordered. Encourage to follow up with PMD as instructed. All questions and concerns addressed. Patient verbalized understanding. Medication reconciliation form completed and copy given to patient; prescription for aggrenox given as well. All personal belongings with patient. Patient sitting on side of bed with no distress noted.
--- NOTE | 2020-07-03 15:50 | NUR ---
Discharge Midline removed intact with no active bleeding; site covered with gauze. Patient discharged to home in stable condition.
== END 2020-07-03 15:50 | disposition home or self-care (01) | DRG 64 ==
LOC: ER 16:27 → TELE 16:28 → TELE-WESTW 23:22
PROVIDERS: ADMIT Nurse Practitioner Family; ATTEND Internal Medicine
DX: I63.9 Cerebral infarction, unspecified (principal); I21.A1 Myocardial infarction type 2; N39.0 Urinary tract infection, site not specified; G81.94 Hemiplegia, unspecified affecting left nondominant side; K21.9 Gastro-esophageal reflux disease without esophagitis; G43.709 Chronic migraine without aura, not intractable, without status migrainosus; I10 Essential (primary) hypertension; F41.9 Anxiety disorder, unspecified; E66.01 Morbid (severe) obesity due to excess calories; F32.9 Major depressive disorder, single episode, unspecified; E87.6 Hypokalemia; K59.00 Constipation, unspecified; D63.8 Anemia in other chronic diseases classified elsewhere; R47.81 Slurred speech; R13.10 Dysphagia, unspecified; R31.9 Hematuria, unspecified; Z79.899 Other long term (current) drug therapy; Z79.82 Long term (current) use of aspirin; Z68.37 Body mass index [BMI] 37.0-37.9, adult
CPT/HCPCS: 36415; 70450; 70551; 72125; 74018; 74176; 74220; 78452; 80048; 80053; 80061; 81001; 81025; 84443; 84484; 85025; 85610; 85730; 87086; 93017; 93306; 93886; 96365; 96372; 96375; C9113; G0378; J0153; J0696; J3480